=== PATIENT | male | born 1985 | race Two or more races ===

== ENCOUNTER 2020-11-20 17:04 | Emergency (ER) | payer SELFPAY ==
[2020-11-20] MEDS ORDERED: Metoclopramide 10 MG/2 ML SDV IVPUSH ONE (17:28)
[2020-11-20] MEDS ORDERED: Dextrose 5%-Lactated Ringers 1,000 ML IV SCH (17:30)
--- NOTE | 2020-11-20 17:47 | EDM.PDOC ---
ED HPI GENERAL MEDICAL PROBLEM - General Chief Complaint: Syncope Stated Complaint: [facility] Time Seen by Provider: 11/20/20 17:42 Source of Information: Reports: Patient, [employer]ancer ([employer]) History Limitations: Reports: Language Barrier (Patient is Austrian-speaking primarily. He could get his point across but we did use [employer] to obtain most of the history from the patient. His speaks broken Ukrainian.) - History of Present Illness INITIAL COMMENTS - FREE TEXT/NARRATIVE: 35-year-old male of [place] descent presents to the ED with acute onset of upper abdominal pain shortly after eating [place] food. It is unclear whether there was a lot of fat E food with the rice that he took in. Apparently as he got in his vehicle to drive back home he had to stop quickly at [employer] station which is across the street because he felt nauseated. He was trying to run to the bathroom which is at the back of the store but collapsed shortly after opening the front door down to the floor. He landed hard on his left knee. Other passersby indicate that he did not lose consciousness totally but suffered a vasovagal event. He eventually did make it to the bathroom where he was found kneeling adjacent to the toilet by paramedics. He apparently did not vomit or have diarrhea. He has adamant that the [place] food made his stomach acutely sick. His ate similar food as did his son and they are okay. He denies any pain at this point time. A bedside ultrasound done revealed his gallbladder to contain no gallstones and no thickening of the gallbladder wall. Onset: Today, Sudden Onset Date: 11/20/20 Onset Time: 17:00 Duration: Minutes:, Improving Location: Reports: Abdomen (Acute onset of epigastric upper abdominal pain associate with nausea) Quality: Reports: Ache, Pressure, Other (Pain in the epigastrium) Severity: Moderate (. Not able to establish if it radiated anywhere.) Improves with: Reports: None Worsens with: Reports: None Context: Reports: Other (Developed acute onset of upper abdominal pain after eating [place] food at a local restaurant.). Denies: Activity, Exercise, Lifting, Sick Contact, Trauma Associated Symptoms: Reports: Loss of Appetite, Malaise, Nausea/Vomiting, Syncope (Apparently did suffer his near syncopal event did go down to the floor as he was running towards the bathroom due to nausea. He never lost consciousness completely.). 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 [No Known Home Meds] 11/20/20 [History] Past Medical History - Past Health History Medical/Surgical History: Denies Medical/Surgical History Social & Family History - Tobacco Use Tobacco Use Status *Q: Never Tobacco User - Recreational Drug Use Recreational Drug Use: No - Living Situation & Occupation Living situation: Reports: (Patient did not work today out in the hot sun.) Occupation: Employed ED ROS GENERAL - Review of Systems Review Of Systems: See Below Constitutional: Reports: No Symptoms HEENT: Reports: No Symptoms Respiratory: Reports: No Symptoms Cardiovascular: Reports: No Symptoms Endocrine: Reports: No Symptoms GI/Abdominal: Reports: No Symptoms : Reports: No Symptoms Musculoskeletal: Reports: No Symptoms Skin: Reports: No Symptoms Neurological: Reports: No Symptoms Psychiatric: Reports: No Symptoms Hematologic/Lymphatic: Reports: No Symptoms Immunologic: Reports: No Symptoms - Physical Exam Exam: See Below Exam Limited By: Language Barrier (Speaks only Austrian. History was obtained primarily through [employer] rn palliative. His also is not fluent in Ukrainian.) General Appearance: Alert, WD/WN, Mild Distress, Other (Temperature 36.9 degrees. Heart rate 79 sinus. Respiratory 17. O2 sats 94 to 95% room air. BP 114/68.) Eye Exam: Bilateral Eye: Normal Inspection, PERRL Throat/Mouth: Normal Inspection, Normal Lips, Normal Oropharynx Head Exam: Atraumatic, Normocephalic Neck: Normal Inspection, Supple, Non-Tender, Full Range of Motion GI/Abdominal: Normal Bowel Sounds, Soft, No Organomegaly, No Distention, No Mass, Pelvis Stable, Tender (Tender epigastrium.), Other (Small easily reducible umbilical hernia. Scaphoid abdomen without any surgical scars). No: Guarding, Rigid, Rebound Neuro Exam (Abbreviated): Alert, Oriented, CN II-XII Intact, Normal Cognition Extremities: Other (He has pain over his left patella with full range of motion of the knee with no evidence of bony injury. Knee ligaments are intact. There is no traumatic effusion.) Psychiatric: Anxious Skin Exam: Warm, Dry, Intact, Normal Color, No Rash Course - Vital Signs Last Recorded V/S: Last Vital Signs Temp 36.9 C 11/20/20 17:20 Pulse 78 11/20/20 19:14 Resp 16 11/20/20 19:14 BP 117/81 11/20/20 19:14 Pulse Ox 99 11/20/20 19:14 - Orders/Labs/Meds Orders: Active Orders 24 hr Category Date Time Status Abdomen 1V Flat [CR] Stat Exams 11/20/20 17:28 Taken Labs: Laboratory Tests 11/20/20 11/20/20 11/20/20 Range/Units 17:33 17:33 17:33 WBC 5.95 (4.23-9.07) K/mm3 RBC 4.33 L (4.63-6.08) M/mm3 Hgb 13.9 (13.7-17.5) gm/dl Hct 42.6 (40.1-51.0) % MCV 98.4 H (79.0-92.2) fl MCH 32.1 (25.7-32.2) pg MCHC 32.6 (32.2-35.5) g/dl RDW Std Deviation 43.5 (35.1-43.9) fL Plt Count 193 (163-337) K/mm3 MPV 10.2 (9.4-12.3) fl Neut % (Auto) 60.3 (34.0-67.9) % Lymph % (Auto) 30.4 (21.8-53.1) % [place] % (Auto) 7.6 (5.3-12.2) % Eos % (Auto) 1.3 (0.8-7.0) Baso % (Auto) 0.2 (0.1-1.2) % Neut # (Auto) 3.59 (1.78-5.38) K/mm3 Lymph # (Auto) 1.81 (1.32-3.57) K/mm3 [place] # (Auto) 0.45 (0.30-0.82) K/mm3 Eos # (Auto) 0.08 (0.04-0.54) K/mm3 Baso # (Auto) 0.01 (0.01-0.08) K/mm3 D-Dimer, Quantitative (0.19-0.50) mg/L Sodium 143 (136-145) mEq/L Potassium 3.4 L (3.5-5.1) mEq/L Chloride 105 (98-107) mEq/L Carbon Dioxide 28 (21-32) mEq/L Anion Gap 13.4 (5-15) BUN 17 (7-18) mg/dL Creatinine 1.2 (0.7-1.3) mg/dL Est Cr Clr Drug Dosing 92.38 mL/min Estimated GFR (MDRD) > 60 (>60) mL/min BUN/Creatinine Ratio 14.2 (14-18) Glucose 163 H (70-99) mg/dL Calcium 8.7 (8.5-10.1) mg/dL Total Bilirubin 0.7 (0.2-1.0) mg/dL AST 16 (15-37) U/L ALT 18 (16-63) U/L Alkaline Phosphatase 44 L (46-116) U/L C-Reactive Protein 0.2 (<1.0) mg/dL Total Protein 7.3 (6.4-8.2) g/dl Albumin 4.1 (3.4-5.0) g/dl Globulin 3.2 gm/dL Albumin/Globulin Ratio 1.3 (1-2) Amylase 82 (25-115) U/L // Range/Units 18:01 WBC (4.23-9.07) K/mm3 RBC (4.63-6.08) M/mm3 Hgb (13.7-17.5) gm/dl Hct (40.1-51.0) % MCV (79.0-92.2) fl MCH (25.7-32.2) pg MCHC (32.2-35.5) g/dl RDW Std Deviation (35.1-43.9) fL Plt Count (163-337) K/mm3 MPV (9.4-12.3) fl Neut % (Auto) (34.0-67.9) % Lymph % (Auto) (21.8-53.1) % [place] % (Auto) (5.3-12.2) % Eos % (Auto) (0.8-7.0) Baso % (Auto) (0.1-1.2) % Neut # (Auto) (1.78-5.38) K/mm3 Lymph # (Auto) (1.32-3.57) K/mm3 [place] # (Auto) (0.30-0.82) K/mm3 Eos # (Auto) (0.04-0.54) K/mm3 Baso # (Auto) (0.01-0.08) K/mm3 D-Dimer, Quantitative < 0.19 L (0.19-0.50) mg/L Sodium (136-145) mEq/L Potassium (3.5-5.1) mEq/L Chloride (98-107) mEq/L Carbon Dioxide (21-32) mEq/L Anion Gap (5-15) BUN (7-18) mg/dL Creatinine (0.7-1.3) mg/dL Est Cr Clr Drug Dosing mL/min Estimated GFR (MDRD) (>60) mL/min BUN/Creatinine Ratio (14-18) Glucose (70-99) mg/dL Calcium (8.5-10.1) mg/dL Total Bilirubin (0.2-1.0) mg/dL AST (15-37) U/L ALT (16-63) U/L Alkaline Phosphatase (46-116) U/L C-Reactive Protein (<1.0) mg/dL Total Protein (6.4-8.2) g/dl Albumin (3.4-5.0) g/dl Globulin gm/dL Albumin/Globulin Ratio (1-2) Amylase (25-115) U/L Meds: Medications Discontinued Medications Generic Name Dose Route Start Last Admin Trade Name Freq PRN Reason Stop Dose Admin Dextrose/Lactated Ringer's 1,000 mls @ 999 mls/hr 11/20/20 17:30 11/20/20 17:41 Dextrose 5%-Lactated Ringers IV 999 mls/hr ASDIRECTED DUYEN Administration Metoclopramide HCl 7.5 mg 11/20/20 17:28 11/20/20 17:41 Metoclopramide 10 Mg/2 Ml Sdv IVPUSH 11/20/20 17:29 7.5 mg ONETIME ONE Administration - Radiology Interpretation Free Text/Narrative:: 35-year-old male of [place] descent presents to the ED after suffering acute onset of nausea with epigastric abdominal pain after eating some [place] food. He left the restaurant and had to stop at a local gas station as he was afraid he was going to vomit. He made it just inside the door of the gas station when he collapsed to the floor with a near syncopal event. It appears that he suffered a vasovagal event. He was then aided to the bathroom but never did vomit. Paramedics were summoned and found him in the bathroom of the gas station and were able to bring him into the ED. There is a language barrier due to him speaking only Austrian. We used [employer] r[employer] palliative to get most of the history from the patient. Patient's speaks broken Ukrainian. Apparently he still has some epigastric discomfort with minimal nausea. He appears to be otherwise in good health takes no medications and has no known allergies. I did a bedside ultrasound on him and there is no evidence of gallstones and no positive Mejia sign. Tenderness is more in the epigastrium. Plan 1 view x-ray of the abdomen to be done. CBC,CMP and a CRP done. Given Reglan 7.5 mg IV for nausea relief. - Re-Assessments/Exams Free Text/Narrative Re-Assessment/Exam: 11/20/20 17:55 KUB is essentially within normal limits. There is no significant constipation. Bowel gas pattern is sparse throughout the large bowel down to the rectal vault. Visualized lung ly are normal. 11/20/20 18:42 White count was 5.95 with a normal differential of 60% neutrophils on the auto differential. Hemoglobin is 13.9 with hematocrit of 42.6. Platelet count 193,000. D-dimer was less than 0.19. This was done because of saturations reportedly only 93 to 94% on room air. Sodium 143 with a potassium low normal at 3.4. Chloride is 105 with a bicarb of 28. Anion gap is 13.4. BUN is 17 with a creatinine of 1.2 and a GFR greater than 60. Glucose is 163. Note he just ate supper. Calcium is 8.7 liver function normal. C- reactive protein 0.2. Total protein 7.3 with an albumin fraction of 4.1 amylase is 82. 11/20/20 19:05: Patient states through broken Ukrainian that he is feeling markedly improved. No further nausea or abdominal pain. We also use the rn palliative iPad to convey discharge instructions and I was able to also get them typed up in Austrian. The cause of his acute upper abdominal pain is unclear. It is evident that he did have a good deal of soda or aerated pop with his [place] food today which may have caused gastric distention and pain. He suffered a near syncopal event going down to the floor on 1 knee likely due to vasovagal reaction as he was feeling very nauseated and tried to make it to the bathroom in the back of the gas station where he had stopped. Advised clear fluids tonight and resume normal diet tomorrow. At this time no further investigations are contemplated Departure - Departure Time of Disposition: 18:57 Disposition: Home, Self-Care 01 Condition: Fair Clinical Impression: Vasovagal near syncope Acute gastritis Qualifiers: Gastritis type: other gastritis - Discharge Information *PRESCRIPTION DRUG MONITORING PROGRAM REVIEWED*: Not Applicable *COPY OF PRESCRIPTION DRUG MONITORING REPORT IN PATIENT ABBY: Not Applicable Instructions: Gastritis, Adult, [id number] Referrals: PCP,None [Primary Care Provider] - Forms: ED Department Discharge Additional Instructions: Evaluation in the emergency room today in regards to development of sudden onset of diffuse upper abdominal pain associate with nausea and feeling of need to vomit. In route to the bathroom in a local gas station you went down on the floor in the aisle of the gas station with a near syncopal event. This occurred secondary to dizziness and lightheadedness which was precipitated by the reflex that causes vomiting. He did make it to the bathroom in the restroom where the paramedics found you. It sounds like there was no vomiting or diarrhea occurrence. Blood pressure was found to be on the low side when you were picked up by the paramedics. Examination here revealed only mild tenderness in the epigastrium but you were already starting to feel better. You were treated with a liter of IV fluids to provide rehydration and medication for nausea relief called Reglan. Lab test done revealed no abnormalities. X-ray of the abdomen revealed no abnormalities. Bedside ultrasound of the gallbladder revealed no gallstones or abnormalities. I suspect it was a combination of food and perhaps soda pop with carbonation that cause sudden onset of pain in the stomach that precipitated the nausea reflex which in turn dropped your heart rate and your blood pressure make you lightheaded and dizzy causing her to nearly pass out. At this time I would suggest only fluids tonight and resume normal diet tomorrow once the stomach is empty. No medication or treatment is otherwise required Evaluacin en la benedicto de emergencias hoy en da con respecto al desarrollo de la aparicin repentina de dolor abdominal superior difuso asociado con nuseas y sensacin de necesidad de vomitar. De keta al sergio en jojo gasolinera local, te caste al suelo en el pasillo de la gasolinera con un evento rick sincopal. [place] ocurri noah consecuencia de mareos y aturdimiento que fue precipitado por el reflejo que provoca el vmito. Lleg al sergio en el sergio donde los paramdicos te encontraron. Parece que no hubo vmitos ni diarrea. Se encontr que la presin arterial estaba baja cuando los paramdicos lo recogieron. El examen aqu revel solo un leve dolor a la palpacin en el epigastrio, lorne ya estaba empezando a sentirse mejor. Lo trataron con un litro de lquidos intravenosos para proporcionar rehidratacin y medicacin para aliviar las nuseas llamado Reglan. Las pruebas de laboratorio realizadas no revelaron anomalas. La radiografa de abdomen no revel anomalas. La ecografa de cabecera de la vescula biliar no revel clculos biliares ni anomalas. Sospecho que fue jojo combinacin de comida y vivek vez gaseosa con carbonatacin lo que provoc la aparicin repentina de dolor en el estmago que precipit el reflejo de las nuseas que, a butterfield vez, redujo el ritmo cardaco y la presin arterial le provoc aturdimiento y mareo provocando que michelle rick se desmaye. . En nohelia momento, sugerira solo lquidos esta noche y reanudara la dieta normal maana jojo vez que el estmago est vaco. De lo contrario, no se requiere medicacin o tratamiento Sepsis Event Note (ED) - Evaluation Sepsis Screening Result: No Definite Risk - Focused Exam Vital Signs: Vital Signs Temp Pulse Resp BP Pulse Ox 11/20/20 19:14 78 16 117/81 99 11/20/20 17:20 36.9 C 79 17 114/68 94 L - My Orders Last 24 Hours: My Active Orders 11/20/20 17:28 Abdomen 1V Flat [CR] Stat - Assessment/Plan Last 24 Hours: My Active Orders 11/20/20 17:28 Abdomen 1V Flat [CR] Stat
--- NOTE | 2020-11-21 07:24 | CR ---
Abdomen: Supine view of the abdomen was obtained. Comparison: No prior abdominal imaging is available. Bowel gas pattern is normal. No abnormal calcifications or soft tissue abnormality is seen. Visualized lung bases are clear. No acute osseous abnormality is appreciated. Impression: 1. Nothing acute is seen on supine abdominal x-ray. Diagnostic code #1
== END 2020-11-20 19:10 | disposition home or self-care (01) ==
LOC: JD.ED 17:04
DX: K29.00 Acute gastritis without bleeding (principal); R55 Syncope and collapse
CPT/HCPCS: 36415; 74018; 80053; 82150; 85025; 85379; 86140; 96374; 99284; J2765; J7121